=== PATIENT | female | born 1955 | race African-American/Black ===

== ENCOUNTER 2020-03-22 06:19 | Day surgery (SDC) | payer MEDICARE ==
--- NOTE | 2020-03-17 11:42 | Opthalmology H&P ---
Ophthalmology H&P H&P Chief Complaint: decreased vision in right eye HPI Vision Affects Ability to: read, manage personal affairs HPI Narrative Blurry vision Exam Visual Acuity: OD Counting Fingers OS 20/40 Tension: OD 12 OS 11 Eye Exam: normal OU: external exam, palpebral fissure-width, marginal reflex distance, levator function, corneas, anterior chambers, lens - PSC OD, fundus exam; findings: lens - PSC OD Assessment/Plan Treatment Plan: cataract extraction w/ lens implant Goals of Treatment: improvement of vision, enhance quality of life Attestation Attestation The risks and benefits of the surgery as well as alternative procedures were explained to the patient in detail. Moe Mehta MD Mar 17, 2020 11:42
--- NOTE | 2020-03-17 11:44 | Pre-Procedure Note/Attestation ---
Pre-Procedure Note/Attestation Complete Prior to Procedure Planned Procedure: right Procedure Narrative: Cataract extraction with IOL implant right eye Indications for Procedure Pre-Operative Diagnosis: Posterior subcapsular cataract right eye Attestation I attest that I discussed the nature of the procedure; its benefits; risks and complications; and alternatives (and the risks and benefits of such alternatives ), prior to the procedure, with the patient (or the patient's legal maintenance representative). I attest that, if there was a reasonable possibility of needing a blood transfusion, the patient (or the patient's legal maintenance representative) was given the [facility] standardized written summary, pursuant to the [employer] [place] Blood Safety Act ([place] Health and Safety Code # 1645, as amended). I attest that I re-evaluated the patient just prior to the surgery and that there has been no change in the patient's H&P, except as documented below: Moe Mehta MD Mar 17, 2020 11:44
--- NOTE | 2020-03-17 12:12 | Opthalmology H&P ---
Ophthalmology H&P H&P Chief Complaint: decreased vision in right eye HPI Vision Affects Ability to: read, manage personal affairs Past Ocular History: glaucoma HPI Narrative Blurry vision Exam Visual Acuity: OD 20/80 OS 20/60 Tension: OD 16 OS 19 Eye Exam: normal OU: external exam, palpebral fissure-width, marginal reflex distance, levator function, corneas, anterior chambers; findings: lens - NS Cataract OU, fundus exam - Moderate Glaucoma OU Assessment/Plan Treatment Plan: cataract extraction w/ lens implant Goals of Treatment: improvement of vision, enhance quality of life Attestation Attestation The risks and benefits of the surgery as well as alternative procedures were explained to the patient in detail. Moe Mehta MD Mar 17, 2020 12:12
--- NOTE | 2020-03-17 12:27 | Pre-Procedure Note/Attestation ---
Pre-Procedure Note/Attestation Complete Prior to Procedure Planned Procedure: right Procedure Narrative: Cataract extraction with IOL implant right eye Indications for Procedure Pre-Operative Diagnosis: Nuclear sclerotic cataract right eye Attestation I attest that I discussed the nature of the procedure; its benefits; risks and complications; and alternatives (and the risks and benefits of such alternatives ), prior to the procedure, with the patient (or the patient's legal senior customer service representative). I attest that, if there was a reasonable possibility of needing a blood transfusion, the patient (or the patient's legal senior customer service representative) was given the [facility] standardized written summary, pursuant to the [employer] [place] Blood Safety Act ([place] Health and Safety Code # 1645, as amended). I attest that I re-evaluated the patient just prior to the surgery and that there has been no change in the patient's H&P, except as documented below: Moe Mehta MD Mar 17, 2020 12:27
[~2020-03-22] VITALS: Ht 171.4 cm; Wt 71.2 kg
[2020-03-22] VITALS (7 sets, daily range): BP systolic 110–140; BP diastolic 68–87
[~2020-03-22 06:19] MED LIST: ALBUTEROL SULF8.5 G1 INH; AMLODIPINE BESY10 MG ORAL; FISH OIL CAP1000 MG ORAL; GARLIC1 EAC1 PO; LATANOPROST2.5 ML BOTH EYES; LORATADINE10 M2 PO; OMEPRAZOLE20 M2 ORAL; OXYBUTYNIN CHLOR5 M1 ORAL; Vit D3 PO
[2020-03-22] MEDS ORDERED: prednisoLONE acetate 1% Opth Susp 1ml ONE (07:00)
[2020-03-22] MEDS ORDERED: Pilocarpine 1% Opth 15ml Soln ONE (07:00)
[2020-03-22] MEDS ORDERED: Polysporin Oint 15gm TOPIC ONE (07:00)
[2020-03-22] MEDS ORDERED: Tetracaine 0.5% Opth 4ml Soln RIGHT EYE ONE (07:45)
[2020-03-22] MEDS ORDERED: Proparacaine 0.5% Opth Soln 15ml RIGHT EYE ONE (07:45)
[2020-03-22] MEDS ORDERED: Akten 3.5% 1ml Btl RIGHT EYE ONE (07:45)
[2020-03-22] MEDS: Phenylephrine 10% Opth Soln 5ml RIGHT EYE SCH ×3 (08:49→09:05)
[2020-03-22] MEDS: Tropicamide 1% Opth 15ml Soln RIGHT EYE SCH ×3 (08:49→09:02)
[2020-03-22] MEDS: Tobramycin Op Soln 0.3% 5ml RIGHT EYE SCH ×3 (08:49→09:05)
[2020-03-22] MEDS: Cyclopentolate 1% Opth Sol 2ml RIGHT EYE SCH ×3 (08:49→09:01)
[2020-03-22] MEDS: Diclofenac Sod 0.1% Op Soln RIGHT EYE SCH ×3 (08:50→09:05)
[2020-03-22] MEDS ORDERED: NORCO 10-325 T1 EACH ORAL (08:54)
[2020-03-22] MEDS ORDERED: EPINEPHrine 1mg/1ml Amp ONE (09:32)
[2020-03-22] MEDS ORDERED: Povidone-Iodine 5% opth solution ONE (09:32)
[2020-03-22] MEDS ORDERED: BSS 15ml BTL ONE (09:32)
[2020-03-22] MEDS ORDERED: BSS 500ml btl ONE (09:32)
[2020-03-22] MEDS ORDERED: Sodium Hyaluronate 10 mg/ml 0.85ml ONE (09:33)
[2020-03-22] MEDS ORDERED: fentaNYL 100 mcg/2 mL IV ONE ×2 (10:45→11:13)
[2020-03-22] MEDS ORDERED: Midazolam 2mg/2ml Inj ONE ×2 (10:45→11:09)
[2020-03-22] MEDS ORDERED: LR 1000ml ONE (11:00)
[2020-03-22] MEDS ORDERED: Sterile Water Irrig 1000ml IRRIG ONE (11:00)
[2020-03-22] MEDS ORDERED: NS Irrig 1000ml ONE (11:00)
--- NOTE | 2020-03-22 11:33 | Immediate Post-Op Evaluation ---
Immediate Post-Op Evalulation Immediate Post-Op Evalulation Procedure: cataract right eye extraction Date of Evaluation: Mar 22, 2020 Time of Evaluation: 11:30 IV Fluids: 300 Blood Pressure Systolic: 121 Blood Pressure Diastolic: 73 Pulse Rate: 74 Respiratory Rate: 14 O2 Sat by Pulse Oximetry: 98 Temperature (Fahrenheit): 97.5 Nausea: No Vomiting: No Complications none Patient Status: awake, reacts, patent Drug: declined Micheline Shukla CRNA Mar 22, 2020 11:33
--- NOTE | 2020-03-22 11:36 | Anethesia Preoperative Eval ---
Anesthesia Pre-op PMH/ROS General Date of Evaluation: Mar 22, 2020 Time of Evaluation: 10:45 Anesthesiologist: teri ASA Score: ASA 3 Mallampati Score Class I : Soft palate, uvula, fauces, pillars visible Class II: Soft palate, uvula, fauces visible Class III: Soft palate, base of uvula visible Class IV: Only hard plate visible Mallampati Classification: Class II Surgeon: henry Diagnosis: cataract Surgical Procedure: cataract extraction Anesthesia History: none Social History: smoking Family History: no anesthesia problems Allergies: Coded Allergies: ADHESIVE TAPE (Verified Allergy, Severe, ITCHING, 03/22/20) Medications: see eMAR Patient NPO?: Yes NPO Date: Mar 22, 2020 NPO Time: 00:01 Past Medical History Cardiovascular: Reports: HTN; Denies: CAD, [place], valve dz, arrhythmia, other Pulmonary: Reports: asthma, COPD Gastrointestinal/Genitourinary: Denies: GERD, CRI, ESRD, other Neurologic/Psychiatric: Denies: dementia, CVA, depression/anxiety, TIA, other Endocrine: Denies: DM, hypothyroidism, steroids, other HEENT: Reports: cataract (R) Hematology/Immune: Denies: anemia, DVT, bleeding disorder, other Musculoskeletal/Integumentary: Denies: OA, RA, DJD, DDD, edema, other Anesthesia Pre-op Phys. Exam Physician Exam Last Vital Signs Date Time Temp Pulse Resp B/P (MAP) Pulse Ox O2 Delivery O2 Flow Rate FiO2 03/22/20 08:54 Room Air 03/22/20 08:53 97.7 74 18 110/75 99 Constitutional: NAD Neurologic: CN 2-12 intact Cardiovascular: RRR Airway Exam Mallampati Classification 2 Mallampati Score: Class II MO: full Neck: normal TMD: 2fb Dentures: no upper, no lower Anesthesia Pre-op A/P Studies Pre-op Studies: EKG Risk Assessment & Plan Assessment: SR Plan: mac Pre-Antibiotics Drug: Micheline Isbell CRNA Mar 22, 2020 11:36
--- NOTE | 2020-03-22 15:16 | Operative Note - PDOC ---
Operative Note Operative Note Date of Operation/Procedure: Mar 22, 2020 Chief Complaint: Blurry vision Pre-op Diagnosis: Nuclear sclerotic cataract right eye Procedure: Cataract extraction with IOL implant right eye Post-op Diagnosis: Pseudophakia OD Operative Findings: consistent w/pre-op dx studies Surgeon: Moe Mehta MD Anesthesiologist: Micheline Shukla CRNA Anesthesia: MAC Specimen: none Complications: none Condition: stable Fluids: LR Estimated Blood Loss: none Drains: none Implant(s) used?: Yes - IOL- OD Indications for Procedure Nuclear sclerotic cataract right eye Description of Procedure This patient has been complaining of a visually significant cataract in the right eye with the best corrected visual acuity of 20/80 under moderate glare conditions worse. The patient complains of difficulties with glare in performing activities of daily living and wants to manage personal affairs with comfort and accuracy and see well enough to move with safety at home and outdoors. The risks, benefits and alternatives of the procedure were discussed with the patient in the office prior to scheduling surgery. All questions from the patient were answered after the surgical procedure was explained in detail. The risks of the procedure as explained to the patient include, but are not limited to, pain, infection, bleeding, loss of vision, retinal detachment, need for further surgery, loss of lens nucleus, double vision, etc. Alternative procedures were discussed which include, to do nothing or seek a second opinion. Informed consent for this procedure was obtained from the patient. The patient was referred to a primary care physician for a cardiopulmonary clearance prior to surgery, after proper evaluation was done patient was properly scheduled for outpatient surgery. The patient was brought to the operating room where the anesthesiologist established I.V. lines and cardiac monitoring leads. Mild intravenous sedation was administered. The patient was then prepared with a 5% solution of povidone -iodine to the conjunctival fornix and lashes, and a 5% solution of povidone- iodine to the lids and periorbital skin. The patient was then draped in the usual sterile fashion. A lid speculum was then placed in the operative eye. A keratome blade was then used to create a biplanar incision into the anterior chamber. Viscoelastics was then instilled into the anterior chamber. A curvilinear capsulorrhexis was then fashioned with an utrata forceps. A BSS was used with G-27 cannula was used to hydrodissect and hydrodelineate the lens nucleus. Paracentesis incision was made at 9 o'clock with sharp blade. The phacoemulsification unit, after being properly adjusted and tested, was then used to emulsify the nucleus. Residual cortical material was aspirated with the irrigation and aspiration unit. Healon was then instilled into the anterior chamber. The corneal wound was then enlarged to the size of the optic with the estrellita keratome blade. The intraocular lens was then inspected for right power and size and thought to be satisfactory. Then the lens was gently placed in the capsular bag. Positioning within the capsular bag was confirmed by direct visualization. Optic centration was accomplished with a Sinskey hook. Viscoelastics was removed from the anterior chamber using the irrigation and aspiration unit. The corneal wound was then tested for leaks and none were found. The lid speculum were then removed. Sponge and needle counts were correct. An eye patch and shield were placed over the operative eye. The patient was taken to the recovery room in stable condition. There were no complications. The patient tolerated the procedure well. The patient was then transferred to the ambulatory surgery unit in stable and satisfactory condition , was given detailed written instructions and asked to follow up in the office the next day. Moe Mehta MD Mar 22, 2020 15:16
--- NOTE | 2020-03-22 15:19 | Brief Operative Note ---
Immediate Post Operative Note Operative Note Chief Complaint: Blurry vision Pre-op Diagnosis: Nuclear sclerotic cataract right eye Procedure: Cataract extraction with IOL implant right eye Post-op Diagnosis: Pseudophakia OD Findings: consistent w/pre-op dx studies Surgeon: Moe Mehta MD Anesthesiologist: Micheline Shukla CRNA Anesthesia: MAC Specimen: none Complications: none Condition: stable Fluids: LR Estimated Blood Loss: none Drains: none Implant(s) used?: Yes - IOL-OD Moe Mehta MD Mar 22, 2020 15:18
[2020-03-24 07:58] VITALS: BP 140/87
--- NOTE | 2020-03-24 07:58 | 48 Hour Post Anesthesia Eval ---
Post Anesthesia Evaluation Procedure: cataract right eye extraction Date of Evaluation: Mar 24, 2020 Time of Evaluation: 07:57 Blood Pressure Systolic: 140 0: 87 Pulse Rate: 59 Respiratory Rate: 14 O2 Sat by Pulse Oximetry: 97 Airway: patent Nausea: No Vomiting: No Hydration Status: adequate Cardiopulmonary Status: stable Mental Status/LOC: patient returned to baseline Post-Anesthesia Complications: none Follow-up care needed: N/A Micheline Shukal CRNA Mar 24, 2020 07:58
== END 2020-03-22 12:45 | disposition home or self-care (01) ==
LOC: SUR 06:19
DX: H25.11 Age-related nuclear cataract, right eye (principal); H40.9 Unspecified glaucoma; I10 Essential (primary) hypertension; J44.9 Chronic obstructive pulmonary disease, unspecified; Z87.891 Personal history of nicotine dependence
CPT/HCPCS: 66984; 94003; J0171; J1100; J2250; J3010; J3370; J7120; U0002; V2632; 94150